=== PATIENT | male | born 1940 | race Asian ===

== ENCOUNTER 2017-03-10 18:12 | Emergency (ER) | payer OTHER ==
[~2017-03-10] VITALS: Ht 165.1 cm; Wt 46.7 kg
--- NOTE | 2017-03-10 18:12 | NUR ---
Patient was BIBA and taken to bed 11 via gurney per EMS.
[2017-03-10 18:24] VITALS: BP 128/78
--- NOTE | 2017-03-10 18:25 | NUR ---
PT BIBA FROM SNF FOR EVALUATION OF ABNORMAL LABS, LOW HGB. HX STOMACH CA, GERD, COPD, PROSTATE CA, PRE-DIABETIC.PORTACATH R UPPER CHEST . DENIES N/V/D; PITTING EDEMA NIC FOOT +4. AAOX4 W, AMB WITH W/C. LUNGS CLEAR BL; PATIENT STATES PAIN OF 0/10 AT THIS TIME; VSS; PATIENT POSITIONED FOR COMFORT; NIC FOOT ELEVATED; BEDRAILS UP X2; BED DOWN. ER MD MADE AWARE OF PT STATUS.
--- NOTE | 2017-03-10 19:20 | NUR ---
Pt report given to JOSE CANTU. Transfer of care at this time.
[2017-03-10 19:22] LABS: BASOPHILS # (AUTO) 0.1 K/uL (0.00-0.22); HEMOGLOBIN 9.3 g/dL (12.0-18.0); LYMPHOCYTES # (AUTO) 0.3 K/uL (2.0-11.5); MEAN CORPUSCULAR HEMOGLOBIN 33 pg (27-31); MEAN CORPUSCULAR HGB CONC 32 g/dL (33-37); MEAN CORPUSCULAR VOLUME 101 fL (80-94); MONOCYTES # (AUTO) 0.2 K/uL (0.8-1.0); MONOCYTES % (AUTO) 5.1 % (1.7-9.3); NEUTROPHILS # (AUTO) 2.4 K/uL (1.8-7.7); PLATELET COUNT (AUTO) 401 K/uL (140-450); RED BLOOD CELL COUNT(AUTO) 2.87 MIL/uL (4.20-6.10); RED CELL DISTRIBUTION WIDTH 18.7 % (11.6-13.7)
[2017-03-10 19:32] LABS: ANION GAP 6.8 (8-16); CARBON DIOXIDE 29.9 mmol/L (21-32); CHLORIDE 103 mmol/L (98-107); CREATININE 0.7 mg/dL (0.7-1.3); GLUCOSE 148 mg/dL (74-106); POTASSIUM 4.7 mmol/L (3.5-5.1); SODIUM SERUM 135 mmol/L (136-145); UREA NITROGEN, BLOOD 29 mg/dL (7-18)
[2017-03-10 19:38] LABS: ALBUMIN 2.1 g/dL (3.4-5.0); ASPARTATE AMINOTRANSFERASE 22 U/L (15-37); TOTAL BILIRUBIN 0.2 mg/dL (0.0-1.0)
[2017-03-10 19:41] LABS: PROTHROMBIN TIME 10.4 secs (10.8-13.4)
--- NOTE | 2017-03-10 21:00 | NUR ---
PT IN BED, SIDE RAILS UP X2, NO NEW NEEDS AT THIS TIME.
--- NOTE | 2017-03-10 21:30 | NUR ---
PT IN BED AWAITING TRANSPORT, PT FEELING NAUSEOUS, ER MD NOTIFIED.
[2017-03-10] MEDS ORDERED: ONDANSETRON 4 MG/2 ML VIAL IVP ONE (21:50)
--- NOTE | 2017-03-10 22:40 | NUR ---
IV removed, catheter intact and site benign. Applied folded 4x4 gauze and tape to stop bleeding.
--- NOTE | 2017-03-10 22:56 | NUR ---
Patient discharged with v/s stable. Written and verbal after care instructions given and explained. Patient verbalized understanding. Wheel Chair Assisted with to care home. All questions addressed prior to discharge. Advised to follow up with PMD. REPORT CALLED TO NONA AT [facility] [place] WHEEL CHAIR TRANSPORT ETA 3-5 MIN TO FACILITY
[2017-03-10 22:57] VITALS: BP 120/83
== END 2017-03-10 22:56 ==
LOC: MED 18:12
DX: D64.9 Anemia, unspecified (principal); K21.9 Gastro-esophageal reflux disease without esophagitis; J44.9 Chronic obstructive pulmonary disease, unspecified; Z88.5 Allergy status to narcotic agent; Z88.8 Allergy status to other drugs, medicaments and biological substances; Z85.46 Personal history of malignant neoplasm of prostate; Z85.028 Personal history of other malignant neoplasm of stomach
CPT/HCPCS: 36415; 71010; 80053; 84484; 85025; 85610; 85730; 86886; 86900; 86901; 93005; 96374; 99285; J2405; Q0092